=== PATIENT | female | born 1990 | race African-American/Black ===

== ENCOUNTER 2018-05-01 07:09 | Emergency (ER) | payer OTHER ==
[2018-05-01 07:45] VITALS: BP 113/68; BMI 33.0
[2018-05-01] MEDS ORDERED: MAG HYDROX/AL HYDROX/SIMETH 30 ML UNIT-DOSE CUP PO ONE (08:23)
[2018-05-01] MEDS ORDERED: ONDANSETRON *ODT* 4 MG TABLET SL ONE (08:23)
[2018-05-01] MEDS ORDERED: RANITIDINE HCL 150 MG TABLET (FP) PO ONE (08:23)
[2018-05-01] MEDS ORDERED: MAG HYDROX/AL HYDROX/SIMETH 30 ML UNIT-DOSE CUP ONE (08:33)
[2018-05-01] MEDS ORDERED: ONDANSETRON *ODT* 4 MG TABLET ONE (08:33)
[2018-05-01] MEDS ORDERED: RANITIDINE HCL 150 MG/10 ML UNIT-DOSE ONE (08:33)
--- NOTE | 2018-05-01 08:40 | PDOC ---
History of Present Illness - General Chief Complaint: Nausea Stated Complaint: NAUSEOUS Time Seen by Provider: 05/01/18 08:16 History Source: Patient Exam Limitations: No Limitations - History of Present Illness Initial Comments: 05/01/18 08:46 c/o nausea loose stool since eating fried fish and fries yesterday. no fever no abd pain, pt has history of GERD recently stopped her zantac as per her GI doctor. Past History - Past Medical History Allergies/Adverse Reactions: Allergies Allergy/AdvReac Type Severity Reaction Status Date / Time No Known Allergies Allergy Verified 05/01/18 07:29 Home Medications: Ambulatory Orders Ondansetron [Zofran Odt -] 4 mg SL TID PRN #12 od.tablet 05/01/18 COPD: No GI Disorders: Yes (gerd) Other medical history: lmp 05/01/18 - Suicide/Smoking/Psychosocial Hx Smoking History: Never smoked Hx Alcohol Use: No Drug/Substance Use Hx: No Review of Systems - Review of Systems Able to Perform ROS?: Yes Is the patient limited Chinese proficient: No Constitutional: No: Symptoms Reported HEENTM: No: Symptoms Reported Respiratory: No: Cough Cardiac (ROS): No: Symptoms Reported ABD/GI: Yes: Symptoms Reported, Nausea : No: Symptoms Reported Musculoskeletal: No: Symptoms Reported Integumentary: No: Symptoms Reported *Physical Exam - Vital Signs Last Vital Signs Temp Pulse Resp BP Pulse Ox 113/68 99 05/01/18 07:29 05/01/18 07:29 - Physical Exam General Appearance: Yes: Nourished, Appropriately Dressed HEENT: positive: EOMI, TESSA, Tonsillar Exudate, Tonsillar Erythema Neck: positive: Supple, Lymphadenopathy (R), Lymphadenopathy (L) Respiratory/Chest: positive: Lungs Clear, Normal Breath Sounds. negative: Chest Tender Cardiovascular: positive: Regular Rhythm, Regular Rate Gastrointestinal/Abdominal: positive: Normal Bowel Sounds, Soft Musculoskeletal: positive: Normal Inspection Extremity: positive: Normal Capillary Refill, Normal Inspection, Normal Range of Motion Integumentary: positive: Normal Color, Dry, Warm Neurologic: positive: Fully Oriented, Alert, Normal Mood/Affect, Normal Response , Motor Strength 5/5 Medical Decision Making - Medical Decision Making 05/01/18 08:53 cc: nausea, loose stool after eating fried fish non tender abdomen no urinary complaints LMP is now pt states her brother is also a patient in the ER for similair complaint pt has no fever tolerating fluids well no vomiting will give zofran, maalox, zantac now bland diet and follow up with GI pt agrees with plan stable on discharge ambulating no distress. 05/01/18 08:55 *DC/Admit/Observation/Transfer Diagnosis at time of Disposition: Nausea - Discharge Dispostion Disposition: HOME Condition at time of disposition: Good - Prescriptions Prescriptions: Ondansetron [Zofran Odt -] 4 mg SL TID PRN #12 od.tablet PRN Reason: Nausea - Referrals Referrals: Geno Self MD [Primary Care Provider] - - Patient Instructions Additional Instructions: bland diet as tolerated the next 24hrs, clear liquids, jello, broth ice pops follow with your doctor if symptoms persist avoid fatty fried foods return if worse zofran for nausea as needed - Post Discharge Activity
[2018-05-01 09:09] VITALS: TEMP 98.3
== END 2018-05-01 09:11 | disposition home or self-care (01) ==
LOC: JER 07:09 → JERFT 07:09
DX: R11.0 Nausea (principal)
CPT/HCPCS: 99281-25; Q0162